=== PATIENT | male | born 1950 | race Caucasian/White ===

== ENCOUNTER 2021-10-12 07:04 | Emergency (ER) | payer MEDICARE ==
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
== END 2021-10-12 08:15 | disposition home or self-care (01) ==
LOC: JD.ED 07:04
DX: R33.9 Retention of urine, unspecified (principal); C61 Malignant neoplasm of prostate; Z72.0 Tobacco use
CPT/HCPCS: 51702; 81001; 99283-25